=== PATIENT | male | born 1970 | race Hispanic/Latino ===

== ENCOUNTER 2018-03-27 19:10 | Inpatient (IN) | payer MEDICAID ==
[2018-03-27 19:26] VITALS: O2SAT 98
--- NOTE | 2018-03-27 19:48 | ED PDOC ---
Psych Transfer Clearance - Clearance Statement Clearance Statement: Reviewed vital signs, lab results and transfer papers. Patient clinically stable for psychiatric admission.
[2018-03-27] MEDS ORDERED: Magnesium Hydroxide Susp 30 ml UD PO PRN (20:07)
[2018-03-27] MEDS ORDERED: DiphenhydrAMINE 50 mg/ml Inj IM PRN (20:07)
[2018-03-27] MEDS ORDERED: Alum-Mag Hydrox-Simethicone Susp (30 mL) PO PRN (20:07)
--- NOTE | 2018-03-27 21:12 | PCM.BM ---
<Daya Mliler P - Last Filed: 03/27/18 21:11> Treatment Plan Problems - Problems identified on initial assessmt Altered Sleep Patterns Date Initiated: 03/27/18 Time Initiated: 21:11 Assessment reference: NA Status: Active Medication nonadherence Date Initiated: 03/27/18 Time Initiated: 21:11 Assessment reference: NA Status: Active Treatment assets and liabiliti Patient Assests: cooperative, physically healthy, good support system, negotiates basic needs, cognitively intact Patient Liabilities: financial problems, substance abuse - Milieu Protocol Maintain good personal hygiene: daily Encourage regular showers, daily Remind patient to perform daily oral care, daily Assist patient to perform ADL's Conduct patient checks and document Observation sheet: Q15 minutes Maintain personal safety: every shift Educate patient to report safety concerns to staff, every shift Monitor environment for contraband/sharps Medication safety: Monitor for expected outcome, potential side effects: every shift, Assess barriers to learning: every shift, Assess readiness for medication education: every shift <Jerry Gómez J - Last Filed: 04/01/18 06:43> Family Contact Family involvement: Family/SO is involved Family contact: Patient declines to allow family contact at present Family contact name: Pt denied. - Goals for Treatment Patient goals for treatment: Pt reported he would like help going through withdrawal symptoms to make him comfortable. Pt reported that he attempted to go through withdrawal by himself at home and was unable to. Pt also would like medication to aid in his insomnia as he was unable to sleep for 4 days and had auditory hallucinations. Discharge/Continuing Care - Education Needs Education Needs: Patient Medication, Patient Diagnosis/Disease Process, Patient Coping Skills, Patient Community resources, Patient Aftercare Safety Plan - Discharge Discharge Criteria: Tolerates medication w/o severe side effects, Free of agitation, Normal sleep pattern, Ability to care for self, Reduction of target symptoms Discharge to:: Home, With Family - Treatment Team Participation Discussed with Family/SO: No Was Patient/Family/SO present at Treatment Team Meeting: Yes <Hoda Washington - Last Filed: 04/02/18 09:34> - Diagnosis (1) Opiate abuse, continuous Status: Acute Interventions: motivational therapy 04/02/18 09:34
[2018-03-28 08:19] LABS: BASO % 0.5 % (0.0-2.0); EOS # 0.1 K/uL (0.0-0.7); EOS % 0.8 % (0.0-4.0); HEMOGLOBIN 12.7 g/dL (12.0-18.0); LYMPH # 1.8 K/uL (1.0-4.3); LYMPH % 26.3 % (20.0-40.0); MEAN CELL VOLUME 89.8 fl (80.0-94.0); MEAN CORPUSCULAR HEMOGLOBIN 30.8 pg (27.0-31.0); MEAN CORPUSCULAR HGB CONC 34.3 g/dL (33.0-37.0); MEAN PLATELET VOLUME 7.6 fl (7.2-11.7); MONO # 0.7 K/uL (0.0-0.8); MONO % 10.5 % (0.0-10.0); NEUT # 4.3 K/uL (1.8-7.0); NEUT % 61.9 % (50.0-75.0); RBC 4.13 Mil/uL (4.40-5.90); RED CELL DISTRIBUTION WIDTH 14.7 % (11.5-14.5)
[2018-03-28 08:32] LABS: ALB/GLOB RATIO 1.3 (1.0-2.1); ALT/SGPT 28 U/L (21-72); AST/SGOT 19 U/L (17-59); BLOOD UREA NITROGEN 17 mg/dl (9-20); CALCIUM 9.3 mg/dL (8.4-10.2); GFR AFRICAN-AMERICAN > 60; GFR NON-AFRICAN AMERICAN > 60; HDL CHOLESTEROL 48 MG/DL (30-70)
[2018-03-28 08:43] LABS: LDL CHOLESTEROL 49 mg/dL (0-129)
[2018-03-28 08:50] LABS: T4 5.31 ug/dl (5.5-11.0)
--- NOTE | 2018-03-28 13:18 | CP.PCM.CON ---
History of Present Illness - History of Present Illness History of Present Illness: 47 yo male with no significant PMH admitted to psyche unit Heroin abuse and withdrawal symptoms. Review of Systems - Review of Systems All systems: reviewed and no additional remarkable complaints except (aside from those mentioned above, 12 point system review were negative by me) Past Patient History - Past Social History Smoking Status: Unknown If Ever Smoked Drugs: Opiates (consumes 5 bags of Heroin a day but have not used for a week) - CARDIAC Hx Cardiac Disorders: No - PULMONARY Hx Respiratory Disorders: No - NEUROLOGICAL Hx Neurological Disorder: No - HEENT Hx HEENT Problems: No - RENAL Hx Chronic Kidney Disease: No - ENDOCRINE/METABOLIC Hx Endocrine Disorders: No - HEMATOLOGICAL/ONCOLOGICAL Hx Blood Disorders: No Hx AIDS: No - INTEGUMENTARY Hx Dermatological Problems: No - MUSCULOSKELETAL/RHEUMATOLOGICAL Hx Musculoskeletal Disorders: No - GASTROINTESTINAL Hx Gastrointestinal Disorders: No - GENITOURINARY/GYNECOLOGICAL Hx Genitourinary Disorders: No - PSYCHIATRIC Hx Substance Use: Yes (heroin) - SURGICAL HISTORY Hx Surgeries: No - ANESTHESIA Hx Anesthesia: No Meds Allergies/Adverse Reactions: Allergies Allergy/AdvReac Type Severity Reaction Status Date / Time No Known Allergies Allergy Verified 03/27/18 19:26 - Medications Medications: Current Medications Acetaminophen (Tylenol 325mg Tab) 650 mg PO Q4 PRN PRN Reason: pain level 4-7 Last Admin: 03/28/18 10:02 Dose: 650 mg Al Hydrox/Mg Hydrox/Simethicone (Maalox Plus 30 Ml) 30 ml PO Q4 PRN PRN Reason: Dyspepsia Diphenhydramine HCl (Benadryl) 50 mg IM Q6 PRN PRN Reason: Extrapyramidal S/S Unable PO Diphenhydramine HCl (Benadryl) 50 mg PO Q6 PRN PRN Reason: Extrapyramidal Symptoms Last Admin: 03/27/18 22:23 Dose: 50 mg Haloperidol (Haldol) 5 mg PO Q4 PRN PRN Reason: Agitation Haloperidol Lactate (Haldol) 5 mg IM Q4 PRN PRN Reason: Agitation, Unable to Take PO Loperamide HCl (Imodium) 2 mg PO QID PRN PRN Reason: Diarrhea Last Admin: 03/28/18 13:10 Dose: 2 mg Lorazepam (Ativan) 1 mg IM Q8 PRN PRN Reason: Anxiety/Agitation,Unable PO Lorazepam (Ativan) 1 mg PO Q8 PRN PRN Reason: Anxiety/Agitation Last Admin: 03/28/18 10:02 Dose: 1 mg Magnesium Hydroxide (Milk Of Magnesia) 30 ml PO HS PRN PRN Reason: Constipation Physical Exam - Constitutional Appears: No Acute Distress - Head Exam Head Exam: ATRAUMATIC - Eye Exam Eye Exam: absent: Scleral icterus - ENT Exam ENT Exam: Mucous Membranes Moist - Neck Exam Neck exam: Negative for: Meningismus - Respiratory Exam Respiratory Exam: absent: Rales, Rhonchi, Wheezes, Respiratory Distress - Cardiovascular Exam Cardiovascular Exam: REGULAR RHYTHM, +S1, +S2 - GI/Abdominal Exam GI & Abdominal Exam: Soft. absent: Tenderness - Rectal Exam Rectal Exam: Deferred - Extremities Exam Extremities exam: Negative for: pedal edema - Back Exam Back exam: NORMAL INSPECTION - Neurological Exam Neurological exam: Alert, Oriented x3 - Psychiatric Exam Psychiatric exam: Normal Affect - Skin Skin Exam: Dry, Intact Results - Vital Signs Recent Vital Signs: Last Vital Signs Temp 99.3 F 03/28/18 09:00 Pulse 92 H 03/28/18 09:00 Resp 18 03/28/18 09:00 BP 127/99 H 03/28/18 09:00 Pulse Ox 98 03/27/18 19:24 - Labs Result Diagrams: 03/28/18 07:30 03/28/18 07:30 Labs: Laboratory Results - last 24 hr 03/28/18 03/28/18 07:30 07:30 WBC 7.0 RBC 4.13 L Hgb 12.7 Hct 37.1 MCV 89.8 MCH 30.8 MCHC 34.3 RDW 14.7 H Plt Count 415 H MPV 7.6 Neut % (Auto) 61.9 Lymph % (Auto) 26.3 [place] % (Auto) 10.5 H Eos % (Auto) 0.8 Baso % (Auto) 0.5 Neut # (Auto) 4.3 Lymph # (Auto) 1.8 [place] # (Auto) 0.7 Eos # (Auto) 0.1 Baso # (Auto) 0.0 Sodium 141 Potassium 4.0 Chloride 105 Carbon Dioxide 24 Anion Gap 16 BUN 17 Creatinine 0.7 L Est GFR ( Amer) > 60 Est GFR (Non-Af Amer) > 60 Random Glucose 96 Calcium 9.3 Total Bilirubin 1.0 AST 19 ALT 28 Alkaline Phosphatase 50 Total Protein 7.2 Albumin 4.0 Globulin 3.2 Albumin/Globulin Ratio 1.3 Triglycerides 77 Cholesterol 121 LDL Cholesterol Direct 49 HDL Cholesterol 48 Thyroxine (T4) 5.31 L TSH 3rd Generation 0.65 Assessment & Plan (1) Heroin withdrawal Status: Acute Comment: psyche is managing
--- NOTE | 2018-03-28 14:04 | PCM.PSYCH ---
Initial Psychiatric Evaluation - Initial Psychiatric Evaluation Type of Admission: Voluntary Chief Complaint (in patient's own words): i cant sleep Patient's Reaction to Hospitalization: pr has been depressed History of Present Illness and Precipitating Events: This is a 47 year old male with h/o depression stemming from in family and pt relapsed on opiate using 5 bags daily for 5 days and admitted because pt has not been sleeping and hallucinating and pt wants to be treated for depression.pt has been treated with different meds in past including seroquel.lunesta and was on multiple benzos in past and was tapered off.Pt has been admitted to [facility] psych unit and was doing better on seroquel but hospital gave him 2 weeks of meds and he ran out and relapsed on opiate to selfmedicate te his insomnia. Current Medications: Active Medications Generic Name Dose Route Start Last Admin Trade Name Freq PRN Reason Stop Dose Admin Acetaminophen 650 mg 03/27/18 20:07 03/28/18 10:02 Tylenol 325mg Tab PO 650 mg Q4 PRN Administration pain level 4-7 Al Hydrox/Mg Hydrox/Simethicone 30 ml 03/27/18 20:07 Maalox Plus 30 Ml PO Q4 PRN Dyspepsia Clonidine HCl 0.1 mg 03/28/18 16:00 Catapres PO Q6 XIMENA Clonidine HCl 0.1 mg 03/28/18 14:15 Catapres PO 03/28/18 14:16 ONCE ONE Diphenhydramine HCl 50 mg 03/27/18 20:07 Benadryl IM Q6 PRN Extrapyramidal S/S Unable PO Diphenhydramine HCl 50 mg 03/27/18 20:07 03/27/18 22:23 Benadryl PO 50 mg Q6 PRN Administration Extrapyramidal Symptoms Haloperidol 5 mg 03/27/18 20:07 Haldol PO Q4 PRN Agitation Haloperidol Lactate 5 mg 03/27/18 20:07 Haldol IM Q4 PRN Agitation, Unable to Take PO Loperamide HCl 2 mg 03/28/18 12:49 03/28/18 13:10 Imodium PO 2 mg QID PRN Administration Diarrhea Lorazepam 1 mg 03/27/18 20:07 Ativan IM Q8 PRN Anxiety/Agitation,Unable PO Lorazepam 1 mg 03/28/18 16:00 Ativan PO Q6 XIMENA Magnesium Hydroxide 30 ml 03/27/18 20:07 Milk Of Magnesia PO HS PRN Constipation Past Psychiatric History - Past Psychiatric History Pertinent Medical Hx (Current Medical&Sleep Prob, Allergies): Allergies Allergy/AdvReac Type Severity Reaction Status Date / Time No Known Allergies Allergy Verified 03/27/18 19:26
--- NOTE | 2018-03-29 11:28 | PCM.PYCHPN ---
Psychiatric Progress Note - Psychiatric Progress Note Patient seen today, length of contact: pt is seen and evaluated Patient Chief Complaint: pt has remained very anxious and cant sleep at bedtime
--- NOTE | 2018-03-30 10:19 | PCM.PYCHPN ---
Psychiatric Progress Note - Psychiatric Progress Note Patient seen today, length of contact: pt is seen and evaluated Patient Chief Complaint: pt has remained very anxious and cant sleep at bedtime.pt has reported feeling little dizzy at times but his vital times are normal and pulse which is 100 and could be from withdrawl from opiates.pt still feels having no energy and depressed as well . Medication Change: Yes (decrease clonidine to 0.1 mg q 12 hr) Medical Record Reviewed: Yes Mental Status Examination - Cognitive Function Orientation: Person, Place, Situation, Time Memory: Intact Attention: Poor Concentration: Poor Association: WNL Fund of Knowledge: WNL - Mood Mood: Anxious - Affect Affect: Broad - Speech Speech: Appropriate Goal/Treatment Plan - Goal/Treatment Plan Progress Toward Problem(s) and Goals/Treatment Plan: will continue to titrate the meds and stabilize the mood and decrease clonidine 0.1 mg q 12 hr .
--- NOTE | 2018-03-31 16:57 | PCM.PYCHPN ---
Psychiatric Progress Note - Psychiatric Progress Note Patient seen today, length of contact: pt is seen and evaluated Patient Chief Complaint: I want to join outpatient rehab Problems Identified/Issues Discussed: pt evaluated with treatment team, reported feeling depressed due to his current living situation anf financial problems, motivational therapy provided, discussed with pt inpatient rehab, pt declined, agreed to be referred to outpatient [facility] program , no reported side effects of medications, denied any current suicidal or homicidal ideation DSM 5 Symptoms Update: substance induced mood disorder opiate use disorder continous bipolar disorder Medication Change: Yes (discontinue clonidine ) Medical Record Reviewed: Yes Mental Status Examination - Cognitive Function Orientation: Person, Place, Situation, Time Memory: Intact Attention: Poor Concentration: Poor Association: WNL Fund of Knowledge: WNL Decription of patient's judgement and insights: partial insight poor judgment - Mood Mood: Depressed, Anxious - Affect Affect: Constricted - Speech Speech: Appropriate - Formal Thought Process Formal Thought Process: Circumstantial Psychotic Thoughts and Behaviors: pt denied perceptual disturbances, non elicited - Suicidal Ideation Suicidal Ideation: No - Homicidal Ideation Homicidal Ideation: No Goal/Treatment Plan - Goal/Treatment Plan Need for Continued Stay: Severe depression anxiety, Discharge may exacerbated symptoms Progress Toward Problem(s) and Goals/Treatment Plan: discontinue clonidine continue with seroquel and neurontin motivational and group therapy referral to [facility] outpatient
--- NOTE | 2018-04-01 16:04 | PCM.PYCHPN ---
Psychiatric Progress Note - Psychiatric Progress Note Patient seen today, length of contact: pt is seen and evaluated Patient Chief Complaint: I am better today Problems Identified/Issues Discussed: pt evaluated reported mood more stable, less depressed, motivated to start outpatient [facility], motivational therapy provided in reference to opiate use , discussed discontinuing ambien for possible abuse tendency , pt denied any current suicidal or homicidal ideation DSM 5 Symptoms Update: substance induced mood disorder Medication Change: Yes (discontinue clonidine ) Medical Record Reviewed: Yes Mental Status Examination - Cognitive Function Orientation: Person, Place, Situation, Time Memory: Intact Attention: Poor Concentration: Poor Association: WNL Fund of Knowledge: WN Decription of patient's judgement and insights: partial insight poor judgment - Mood Mood: Depressed, Anxious - Affect Affect: Constricted - Speech Speech: Appropriate - Formal Thought Process Formal Thought Process: Circumstantial Psychotic Thoughts and Behaviors: pt denied perceptual disturbances, non elicited - Suicidal Ideation Suicidal Ideation: No - Homicidal Ideation Homicidal Ideation: No Goal/Treatment Plan - Goal/Treatment Plan Need for Continued Stay: Severe depression anxiety, Discharge may exacerbated symptoms Progress Toward Problem(s) and Goals/Treatment Plan: discontinue clonidine continue with seroquel and neurontin discontinue ambien motivational and group therapy referral to [facility] outpatient
[2018-04-01 19:46] VITALS: RESP 18
[2018-04-02 08:31] VITALS: BP 120/69; PULSE 92; TEMP 97.6
--- NOTE | 2018-04-02 12:52 | PCM.PYCHDC ---
Mental Status Examination - Mental Status Examination Orientation: Person, Place, Situation Memory: Intact Mood: Neutral Speech: Appropriate Attention: WNL Concentration: WNL Association: WNL Fund of Knowledge: WNL Formal Thought Process: No Impairment Description of patient's judgement and insight: partial insight poor judgment Psychotic Thoughts and Behaviors: pt denied perceptual disturbances, non elicited Suicidal Ideation: No Current Homicidal Ideation?: No Discharge Summary - Discharge Note Reason for Hospitalization: This is a 47 year old male with h/o depression stemming from in family and pt relapsed on opiate using 5 bags daily for 5 days and admitted because pt has not been sleeping and hallucinating and pt wants to be treated for depression.pt has been treated with different meds in past including seroquel.lunesta and was on multiple benzos in past and was tapered off.Pt has been admitted to [facility] psych unit and was doing better on seroquel but hospital gave him 2 weeks of meds and he ran out and relapsed on opiate to selfmedicate te his insomnia. Consultations:: List each consultation separately and include: 1. Reason for request. 2. Findings. 3. Follow-up Summary of Hospital Course include:: 1. Description of specific treatment plan utilized for patients during their course of treatmen. 2. Summarize the time- course for resolution of acute symptoms and/or regressed behaviors. 3. Describe issues identified and worked on during hospitalization. 4. Describe medication utilized. 5. Describe medical problems identified and treated. 6. Reassessment of suicide risk Summary of Hospital Course: pt on admission was placed on clonidine , protocol and monitored for symptoms and signs of opiate withdrawal, pt was placed on neurontin for anxiety and seroquel for depression pt attended groups, was compliant with treatment , no reported side effects of medications motivational, group and supportive therapy provided on discharge mental status was stable, pt denied any current suicidal or homicidal ideation, denied perceptual disturbances, no reported side effects of medications, follow up arranged by [employer] at [facility] [employer] program - Diagnosis (1) Opiate abuse, continuous Status: Acute - Final Diagnosis (DSM 5) Condition upon Discharge: STABLE Disposition: HOME/ ROUTINE Follow-up Treatment Plan: discontinue clonidine continue with seroquel and neurontin discontinue ambien motivational and group therapy referral to [facility] outpatient Prescriptions/Medication Reconciliation: Gabapentin [Neurontin] 300 mg PO AMHS 30 Days #60 cap QUEtiapine [SEROquel] 300 mg PO HS 30 Days #30 tab traZODone [Desyrel] 100 mg PO HS 30 Days #30 tab - Antipsychotic Medications Pt discharged on 2 or more routine antipsychotic medications: No
== END 2018-04-02 12:12 | disposition home or self-care (01) | DRG 748 ==
LOC: H.ER 19:10 → H.ERHOLD 19:39 → H.PSYCH 19:55
PROVIDERS: ADMIT Psychiatry & Neurology Psychiatry; ATTEND Psychiatry & Neurology Psychiatry
PROC: GZHZZZZ Group Psychotherapy (ICD-10-PCS; principal; 2018-03-27)
PROC: HZ57ZZZ Individual Psychotherapy for Substance Abuse Treatment, Motivational Enhancement (ICD-10-PCS; 2018-03-27)
PROC: HZ59ZZZ Individual Psychotherapy for Substance Abuse Treatment, Supportive (ICD-10-PCS; 2018-03-27)
DX: F11.14 Opioid abuse with opioid-induced mood disorder (principal); F41.9 Anxiety disorder, unspecified; G47.00 Insomnia, unspecified; F32.9 Major depressive disorder, single episode, unspecified